=== PATIENT | male | born 1995 | race Caucasian/White ===

== ENCOUNTER 2019-10-12 13:08 | Emergency (ER) | payer OTHER ==
[~2019-10-12] VITALS: Ht 180.3 cm; Wt 82.1 kg
[2019-10-12 13:19] VITALS: BP 144/84; Ht 180.3 cm; Wt 82.1 kg
== END 2019-10-12 14:35 | disposition home or self-care (01) ==
LOC: ED 13:08
DX: S01.01XA Laceration without foreign body of scalp, initial encounter (principal); X58.XXXA Exposure to other specified factors, initial encounter; Y93.89 Activity, other specified; Y92.89 Other specified places as the place of occurrence of the external cause; Y99.8 Other external cause status